=== PATIENT | female | born 1945 | race Caucasian/White ===

== ENCOUNTER 2023-01-07 17:06 | Inpatient (IN) | payer MEDICARE ==
[~2023-01-07] VITALS: Ht 165.1 cm; Wt 47.6 kg
[2023-01-07] MEDS ORDERED: ONDANSETRON 4 MG/2 ML VIAL ONE (17:22)
[2023-01-07] MEDS ORDERED: HYDROMORPHONE 1 MG/1 ML DISP.SYRIN ONE ×2 (17:23→18:40)
[2023-01-07] MEDS ORDERED: HYDROMORPHONE 1 MG/1 ML DISP.SYRIN IV ONE ×2 (17:30→18:45)
[2023-01-07] MEDS ORDERED: ONDANSETRON 4 MG/2 ML VIAL IV ONE (17:30)
[2023-01-07] MEDS ORDERED: OXYC-128 PO (17:32)
[2023-01-07] MEDS ORDERED: OLME20TA13 PO (17:32)
[2023-01-07] MEDS ORDERED: PRAV20TA4 PO (17:32)
[2023-01-07 17:37] LABS: BASOPHILS # (AUTO) 0.1 K/UL (0.0-0.2); BASOPHILS % (AUTO) 1.2 % (0.0-2.0); EOSINOPHILS % (AUTO) 0.1 % (0.0-7.0); HEMATOCRIT 45.4 % (31.2-41.9); HEMOGLOBIN 15.3 g/dL (10.9-14.3); LYMPHOCYTES # (AUTO) 0.3 K/uL (0.8-4.8); LYMPHOCYTES % (AUTO) 2.9 % (20.5-51.5); MEAN CORPUSCULAR HEMOGLOBIN 33.4 uug (24.7-32.8); MEAN CORPUSCULAR HGB CONC 34 g/dL (32.3-35.6); MEAN CORPUSCULAR VOLUME 98.9 fL (75.5-95.3); MONOCYTES # (AUTO) 1.1 K/uL (0.1-1.30); MONOCYTES % (AUTO) 10.3 % (0.0-11.0); NEUTROPHILS # (AUTO) 9.6 K/uL (1.8-8.9); NEUTROPHILS % (AUTO) 85.5 % (38.5-71.5); PLATELET COUNT (AUTO) 159 K/uL (179-408); RED CELL DISTRIBUTION WIDTH 13.1 % (12.3-17.7); WHITE BLOOD COUNT (AUTO) 11.2 K/uL (3.8-11.8)
[2023-01-07 17:42] LABS: DIFFERENTIAL COMMENT 1
[2023-01-07 17:55] LABS: ALANINE AMINOTRANSFERASE 25 U/L (14-59); ALKALINE PHOSPHATASE 71 U/L (50-136); ASPARTATE AMINOTRANSFERASE 26 U/L (15-37); BILIRUBIN,DIRECT 0.5 mg/dL (0.0-0.2); BILIRUBIN,TOTAL 1.8 mg/dL (0.2-1.0); CALCIUM 8.9 mg/dL (8.5-10.1); CARBON DIOXIDE 25 mmol/L (21-32); CHLORIDE 94 mmol/L (98-107); CREATININE 0.7 mg/dL (0.6-1.3); GLUCOSE 148 mg/dL (74-106); POTASSIUM 4.3 mmol/L (3.5-5.1); SODIUM SERUM 132 mmol/L (136-145); TOTAL PROTEIN, SERUM 7.4 g/dL (6.4-8.2); UREA NITROGEN, BLOOD 17 mg/dL (7-18)
[2023-01-07] MEDS ORDERED: ONDANSETRON 4 MG/2 ML VIAL IV PRN ×2 (22:30→23:00)
[2023-01-07] MEDS: MORPHINE SULFATE 4 MG/1 ML DISP.SYRIN IV PRN (22:48)
[2023-01-07] MEDS ORDERED: ZOLPIDEM 5 MG TABLET PO PRN (23:00)
[2023-01-07] MEDS ORDERED: ACETAMINOPHEN 325 MG TABLET PO PRN (23:00)
[2023-01-07] MEDS ORDERED: MAGNESIUM HYDROXIDE 30 ML LIQUID UDC PO PRN (23:00)
[2023-01-07] MEDS ORDERED: REMEDY ESSENTIAL ZINC PASTE 113 GM TP PRN (23:00)
[2023-01-08] VITALS (7 sets, daily range): BP systolic 130–156; BP diastolic 60–93; TEMP 97.9–98.7; O2SAT 96–99
[2023-01-08] MEDS: MORPHINE SULFATE 4 MG/1 ML DISP.SYRIN IV PRN ×4 (07:02→21:14)
[2023-01-08 07:13] LABS: BASOPHILS % (AUTO) 0.1 % (0.0-2.0); EOSINOPHILS % (AUTO) 0.1 % (0.0-7.0); HEMATOCRIT 43.2 % (31.2-41.9); HEMOGLOBIN 15.1 g/dL (10.9-14.3); LYMPHOCYTES # (AUTO) 0.5 K/uL (0.8-4.8); LYMPHOCYTES % (AUTO) 5.2 % (20.5-51.5); MEAN CORPUSCULAR HEMOGLOBIN 34.5 uug (24.7-32.8); MEAN CORPUSCULAR HGB CONC 35 g/dL (32.3-35.6); MEAN CORPUSCULAR VOLUME 98.5 fL (75.5-95.3); MONOCYTES # (AUTO) 0.9 K/uL (0.1-1.30); MONOCYTES % (AUTO) 9.3 % (0.0-11.0); NEUTROPHILS # (AUTO) 8.2 K/uL (1.8-8.9); NEUTROPHILS % (AUTO) 85.3 % (38.5-71.5); PLATELET COUNT (AUTO) 139 K/uL (179-408); RED BLOOD CELL COUNT(AUTO) 4.38 MIL/uL (3.63-4.92); RED CELL DISTRIBUTION WIDTH 13.1 % (12.3-17.7); WHITE BLOOD COUNT (AUTO) 9.7 K/uL (3.8-11.8)
[2023-01-08 07:30] LABS: DIFFERENTIAL COMMENT 1
[2023-01-08 07:52] LABS: CALCIUM 8.9 mg/dL (8.5-10.1); CARBON DIOXIDE 30 mmol/L (21-32); CHLORIDE 94 mmol/L (98-107); CHOLESTEROL 170 mg/dL (<200); CREATININE 0.7 mg/dL (0.6-1.3); GLUCOSE 104 mg/dL (74-106); HDL CHOLESTEROL 86 mg/dL (40-60); MAGNESIUM 1.8 mg/dL (1.8-2.4); PHOSPHOROUS 3.3 mg/dL (2.5-4.9); POTASSIUM 4.3 mmol/L (3.5-5.1); SODIUM SERUM 133 mmol/L (136-145); TRIGLYCERIDES 48 MG/DL (30-150); UREA NITROGEN, BLOOD 17 mg/dL (7-18)
[2023-01-08] MEDS ORDERED: VANCOMYCIN 1000 MG VIAL ONE (09:00)
[2023-01-08] MEDS: LOSARTAN POTASSIUM 50 MG TABLET PO SCH ×2 (09:00→15:17)
[2023-01-08] MEDS ORDERED: LOSARTAN POTASSIUM 50 MG TABLET PO SCH (09:00)
[2023-01-08] MEDS: PANTOPRAZOLE SODIUM 40 MG VIAL IV SCH (09:08)
[2023-01-08 09:43] LABS: THYROID STIMULATING HORMONE 2.326 mIU/mL (0.358-3.740)
[2023-01-08] MEDS ORDERED: KETOROLAC TROMETHAMINE 30 MG INJ ONE (10:00)
[2023-01-08] MEDS ORDERED: LIDOCAINE-MPF 2% 5 ML VIAL ONE (10:00)
[2023-01-08] MEDS ORDERED: PHENYLEPHRINE 10 MG/1 ML VIAL ONE (10:00)
[2023-01-08] MEDS ORDERED: PROPOFOL 200 MG/20 ML BOTTLE ONE (10:00)
[2023-01-08] MEDS ORDERED: FENTANYL CITRATE 250 MCG/5 ML AMPUL ONE (10:47)
[2023-01-08] MEDS ORDERED: FENTANYL CITRATE 100 MCG/2 ML AMPUL ONE (11:48)
[2023-01-08] MEDS: IV D5W-0.45% NS +20 KCL 1,000 ML IV PRN (14:08)
[2023-01-08] MEDS: CEFAZOLIN 1 G in IV DEXTROSE 5% 50 ML IV SCH (18:02)
[2023-01-08] MEDS: ATORVASTATIN 10 MG TABLET PO SCH (21:13)
[2023-01-09] MEDS: CEFAZOLIN 1 G in IV DEXTROSE 5% 50 ML IV SCH (01:27)
[2023-01-09] MEDS: MORPHINE SULFATE 4 MG/1 ML DISP.SYRIN IV PRN ×7 (01:30→21:15)
[2023-01-09 04:00] VITALS: BP 117/65; TEMP 97.4; O2SAT 96
[2023-01-09] MEDS: IV D5W-0.45% NS +20 KCL 1,000 ML IV PRN ×2 (06:00→22:16)
[2023-01-09 07:36] LABS: BASOPHILS % (AUTO) 0.2 % (0.0-2.0); DIFFERENTIAL COMMENT 1; EOSINOPHILS % (AUTO) 0.3 % (0.0-7.0); HEMATOCRIT 35.9 % (31.2-41.9); HEMOGLOBIN 12.3 g/dL (10.9-14.3); LYMPHOCYTES # (AUTO) 0.7 K/uL (0.8-4.8); LYMPHOCYTES % (AUTO) 8.3 % (20.5-51.5); MEAN CORPUSCULAR HEMOGLOBIN 34.5 uug (24.7-32.8); MEAN CORPUSCULAR HGB CONC 34 g/dL (32.3-35.6); MEAN CORPUSCULAR VOLUME 100.4 fL (75.5-95.3); MONOCYTES # (AUTO) 0.8 K/uL (0.1-1.30); MONOCYTES % (AUTO) 9.1 % (0.0-11.0); NEUTROPHILS # (AUTO) 7.3 K/uL (1.8-8.9); NEUTROPHILS % (AUTO) 82.1 % (38.5-71.5); PLATELET COUNT (AUTO) 133 K/uL (179-408); RED BLOOD CELL COUNT(AUTO) 3.57 MIL/uL (3.63-4.92); WHITE BLOOD COUNT (AUTO) 8.9 K/uL (3.8-11.8)
[2023-01-09 07:51] LABS: CALCIUM 8.7 mg/dL (8.5-10.1); CARBON DIOXIDE 29 mmol/L (21-32); CHLORIDE 96 mmol/L (98-107); CREATININE 0.6 mg/dL (0.6-1.3); GLUCOSE 121 mg/dL (74-106); MAGNESIUM 1.7 mg/dL (1.8-2.4); PHOSPHOROUS 2.4 mg/dL (2.5-4.9); POTASSIUM 3.8 mmol/L (3.5-5.1); SODIUM SERUM 130 mmol/L (136-145); UREA NITROGEN, BLOOD 14 mg/dL (7-18)
[2023-01-09 08:00] VITALS: BP 119/74; TEMP 98.3; O2SAT 97
[2023-01-09] MEDS: LOSARTAN POTASSIUM 50 MG TABLET PO SCH (09:45)
[2023-01-09] MEDS: PANTOPRAZOLE SODIUM 40 MG VIAL IV SCH (09:45)
[2023-01-09] MEDS: MAGNESIUM SULFATE/D5W 100 ML IV SCH ×2 (09:46→12:06)
[2023-01-09 11:30] VITALS: BP 109/54; TEMP 97.3; O2SAT 95
[2023-01-09 15:53] VITALS: BP 101/55; TEMP 98.2; O2SAT 98
[2023-01-09] MEDS ORDERED: NEUTRA PHOS PACKET PO ONE (16:00)
[2023-01-09] MEDS: GLUCERNA SHAKE 237 ML CAN PO SCH (17:01)
[2023-01-09 19:43] VITALS: BP 114/60; TEMP 98; O2SAT 99
[2023-01-09] MEDS: ATORVASTATIN 10 MG TABLET PO SCH (21:14)
[2023-01-10 04:00] VITALS: BP 139/73; TEMP 98.1; O2SAT 96
[2023-01-10] MEDS: HYDROCODONE/APAP 10-325 MG TABLET PO PRN (06:01)
[2023-01-10] MEDS: PANTOPRAZOLE SODIUM 40 MG TABLET.DR PO SCH (06:04)
[2023-01-10 07:15] LABS: BASOPHILS % (AUTO) 0.4 % (0.0-2.0); EOSINOPHILS # (AUTO) 0.1 K/uL (0.0-0.7); EOSINOPHILS % (AUTO) 1.1 % (0.0-7.0); HEMOGLOBIN 11.5 g/dL (10.9-14.3); LYMPHOCYTES # (AUTO) 0.7 K/uL (0.8-4.8); LYMPHOCYTES % (AUTO) 9.4 % (20.5-51.5); MEAN CORPUSCULAR HEMOGLOBIN 34.6 uug (24.7-32.8); MEAN CORPUSCULAR HGB CONC 35 g/dL (32.3-35.6); MEAN CORPUSCULAR VOLUME 99.4 fL (75.5-95.3); MONOCYTES # (AUTO) 0.7 K/uL (0.1-1.30); MONOCYTES % (AUTO) 8.7 % (0.0-11.0); NEUTROPHILS # (AUTO) 6.1 K/uL (1.8-8.9); NEUTROPHILS % (AUTO) 80.4 % (38.5-71.5); PLATELET COUNT (AUTO) 122 K/uL (179-408); RED BLOOD CELL COUNT(AUTO) 3.32 MIL/uL (3.63-4.92); RED CELL DISTRIBUTION WIDTH 12.8 % (12.3-17.7); WHITE BLOOD COUNT (AUTO) 7.6 K/uL (3.8-11.8)
[2023-01-10 07:21] LABS: DIFFERENTIAL COMMENT 1
[2023-01-10 07:48] LABS: CALCIUM 7.8 mg/dL (8.5-10.1); CARBON DIOXIDE 27 mmol/L (21-32); CHLORIDE 97 mmol/L (98-107); CREATININE 0.5 mg/dL (0.6-1.3); GLUCOSE 98 mg/dL (74-106); MAGNESIUM 1.8 mg/dL (1.8-2.4); PHOSPHOROUS 2.6 mg/dL (2.5-4.9); POTASSIUM 4.5 mmol/L (3.5-5.1); SODIUM SERUM 130 mmol/L (136-145); UREA NITROGEN, BLOOD 7 mg/dL (7-18)
[2023-01-10] MEDS: LOSARTAN POTASSIUM 50 MG TABLET PO SCH (09:00)
[2023-01-10] MEDS: GLUCERNA SHAKE 237 ML CAN PO SCH ×2 (09:09→17:00)
[2023-01-10] MEDS: MORPHINE SULFATE 4 MG/1 ML DISP.SYRIN IV PRN ×3 (12:22→21:39)
[2023-01-10 12:54] VITALS: BP 110/65; TEMP 98; O2SAT 96
[2023-01-10 15:50] VITALS: BP 145/76; TEMP 97.9; O2SAT 99
[2023-01-10 20:00] VITALS: BP 137/62; TEMP 97.5; O2SAT 99
[2023-01-10] MEDS: ATORVASTATIN 10 MG TABLET PO SCH (21:09)
[2023-01-11] MEDS: PANTOPRAZOLE SODIUM 40 MG TABLET.DR PO SCH (06:26)
[2023-01-11] MEDS: MORPHINE SULFATE 4 MG/1 ML DISP.SYRIN IV PRN (06:39)
[2023-01-11 07:07] LABS: BASOPHILS % (AUTO) 0.2 % (0.0-2.0); EOSINOPHILS # (AUTO) 0.1 K/uL (0.0-0.7); EOSINOPHILS % (AUTO) 2.1 % (0.0-7.0); HEMATOCRIT 32.5 % (31.2-41.9); HEMOGLOBIN 11.4 g/dL (10.9-14.3); LYMPHOCYTES # (AUTO) 0.8 K/uL (0.8-4.8); LYMPHOCYTES % (AUTO) 11.4 % (20.5-51.5); MEAN CORPUSCULAR HEMOGLOBIN 34.6 uug (24.7-32.8); MEAN CORPUSCULAR HGB CONC 35 g/dL (32.3-35.6); MONOCYTES # (AUTO) 0.7 K/uL (0.1-1.30); MONOCYTES % (AUTO) 9.8 % (0.0-11.0); NEUTROPHILS # (AUTO) 5.1 K/uL (1.8-8.9); NEUTROPHILS % (AUTO) 76.5 % (38.5-71.5); PLATELET COUNT (AUTO) 155 K/uL (179-408); RED BLOOD CELL COUNT(AUTO) 3.28 MIL/uL (3.63-4.92); RED CELL DISTRIBUTION WIDTH 12.9 % (12.3-17.7); WHITE BLOOD COUNT (AUTO) 6.6 K/uL (3.8-11.8)
[2023-01-11 07:22] LABS: DIFFERENTIAL COMMENT 1
[2023-01-11 07:34] LABS: CALCIUM 8.9 mg/dL (8.5-10.1); CARBON DIOXIDE 25 mmol/L (21-32); CHLORIDE 95 mmol/L (98-107); CREATININE 0.4 mg/dL (0.6-1.3); GLUCOSE 99 mg/dL (74-106); MAGNESIUM 1.4 mg/dL (1.8-2.4); PHOSPHOROUS 3.5 mg/dL (2.5-4.9); SODIUM SERUM 127 mmol/L (136-145); UREA NITROGEN, BLOOD 5 mg/dL (7-18)
[2023-01-11] MEDS: GLUCERNA SHAKE 237 ML CAN PO SCH (09:00)
[2023-01-11] MEDS: LOSARTAN POTASSIUM 50 MG TABLET PO SCH (09:00)
[2023-01-11 10:03] VITALS: BP 137/75; TEMP 98; O2SAT 99
[2023-01-11] MEDS: HYDROCODONE/APAP 10-325 MG TABLET PO PRN (10:05)
[2023-01-11] MEDS ORDERED: ENOXAPARIN SODIUM 30 MG/0.3 ML DISP.SYRIN SUBCUT SCH (10:30)
[2023-01-11] MEDS ORDERED: MAGNESIUM OXIDE 400 MG TABLET PO ONE (10:30)
[2023-01-11] MEDS ORDERED: ENOXAPARIN SODIUM 40 MG/0.4 ML DISP.SYRIN SQ SCH (10:45)
[2023-01-11] MEDS: MAGNESIUM SULFATE/D5W 100 ML IV SCH ×2 (11:24→12:29)
[2023-01-11 12:05] VITALS: BP 103/63; TEMP 97.9; O2SAT 96
[2023-01-11] MEDS ORDERED: Z GUARD TOP (17:13)
[2023-01-11] MEDS ORDERED: NUT.237L36 PO (17:13)
[2023-01-11] MEDS ORDERED: ZOLP5TAB2 PO (17:13)
[2023-01-11] MEDS ORDERED: MORP4CAR IV (17:13)
[2023-01-11] MEDS ORDERED: LOSA50TA3 PO (17:13)
[2023-01-11] MEDS ORDERED: MAGN400O6 PO (17:13)
[2023-01-11] MEDS ORDERED: ACET325C7 PO (17:13)
[2023-01-11] MEDS ORDERED: ATOR10TA PO (17:13)
[2023-01-11] MEDS ORDERED: ONDA4TAB5 IV (17:13)
[2023-01-11] MEDS ORDERED: ENOX40DI SQ (17:13)
[2023-01-11] MEDS ORDERED: PANT40TA2 PO (17:13)
[2023-01-11] MEDS ORDERED: HYDR-3980 PO (17:13)
[2023-01-12 20:30] LABS: *SODIUM RNDM,URINE 42 mmol/L (40-220)
== END 2023-01-11 15:52 | DRG 481 ==
LOC: ER 17:08 → MEDSURG3 20:16
PROVIDERS: ADMIT Nurse Practitioner Acute Care; ATTEND Nurse Practitioner Acute Care
PROC: 0QS736Z Reposition Left Upper Femur with Intramedullary Internal Fixation Device, Percutaneous Approach (ICD-10-PCS; principal; 2023-01-08)
DX: M80.852A Other osteoporosis with current pathological fracture, left femur, initial encounter for fracture (principal); E22.2 Syndrome of inappropriate secretion of antidiuretic hormone; R64 Cachexia; Z68.1 Body mass index [BMI] 19.9 or less, adult; Z98.1 Arthrodesis status; S00.83XA Contusion of other part of head, initial encounter; G89.4 Chronic pain syndrome; E78.5 Hyperlipidemia, unspecified; I10 Essential (primary) hypertension; Z79.899 Other long term (current) drug therapy
CPT/HCPCS: 36415; 70450; 71045; 72125; 73502; 73503; 83735; 84100; 84300; 84443; 84484; 85025; 85730; 86850; 86900; 86901; 93005; 93307; A4649; A6209; C1713; C9113; G0378; J0690; J1170; J1650; J1885; J2270; J2370; J2405; J3010; J3370; J3475; J3490

== ENCOUNTER 2023-01-11 16:04 | Inpatient (IN) | payer MEDICARE ==
[~2023-01-11] VITALS: Ht 165.1 cm; Wt 47.6 kg
[2023-01-11 16:00] VITALS: BP 99/57; TEMP 97.9; O2SAT 100
[~2023-01-11 16:04] MED LIST: OLME20TA13 PO; OXYC-128 PO; PRAV20TA4 PO
[2023-01-11] MEDS ORDERED: Z GUARD TOP (17:13)
[2023-01-11] MEDS ORDERED: ONDA4TAB5 IV (17:13)
[2023-01-11] MEDS ORDERED: ATOR10TA PO (17:13)
[2023-01-11] MEDS ORDERED: MAGN400O6 PO (17:13)
[2023-01-11] MEDS ORDERED: LOSA50TA3 PO (17:13)
[2023-01-11] MEDS ORDERED: ACET325C7 PO (17:13)
[2023-01-11] MEDS ORDERED: ENOX40DI SQ (17:13)
[2023-01-11] MEDS ORDERED: HYDR-3980 PO (17:13)
[2023-01-11] MEDS ORDERED: NUT.237L36 PO (17:13)
[2023-01-11] MEDS ORDERED: PANT40TA2 PO (17:13)
[2023-01-11] MEDS ORDERED: MORP4CAR IV (17:13)
[2023-01-11] MEDS ORDERED: ZOLP5TAB2 PO (17:13)
[2023-01-11 19:45] VITALS: BP 124/65; TEMP 98.2; O2SAT 100
[2023-01-11] MEDS: OXYCODONE HCL 5 MG TABLET PO PRN (20:27)
[2023-01-12] MEDS: OXYCODONE HCL 5 MG TABLET PO PRN ×3 (05:52→18:17)
[2023-01-12 06:08] VITALS: BP 166/89; TEMP 98.5; O2SAT 100
[2023-01-12] MEDS ORDERED: CLONIDINE HCL 0.1 MG TABLET PO PRN (06:15)
[2023-01-12 08:00] VITALS: BP 90/51; TEMP 97.8; O2SAT 99
[2023-01-12] MEDS ORDERED: ONDANSETRON HCL 4 MG TABLET PO PRN (10:45)
[2023-01-12] MEDS: LOSARTAN POTASSIUM 50 MG TABLET PO SCH (11:23)
[2023-01-12] MEDS: ENOXAPARIN SODIUM 40 MG/0.4 ML DISP.SYRIN SQ SCH (11:23)
[2023-01-12] MEDS: GLUCERNA SHAKE 237 ML CAN PO SCH ×2 (11:24→18:02)
[2023-01-12 16:00] VITALS: BP 111/58; TEMP 97.8; O2SAT 99
[2023-01-12] MEDS: ATORVASTATIN 10 MG TABLET PO SCH (20:18)
[2023-01-12 20:21] VITALS: BP 106/50; TEMP 98.5; O2SAT 96
[2023-01-13] MEDS: OXYCODONE HCL 5 MG TABLET PO PRN ×3 (00:30→21:43)
[2023-01-13 04:04] VITALS: BP 105/59; TEMP 98; O2SAT 97
[2023-01-13] MEDS: PANTOPRAZOLE SODIUM 40 MG TABLET.DR PO SCH (06:12)
[2023-01-13 07:24] LABS: CALCIUM 8.6 mg/dL (8.5-10.1); CARBON DIOXIDE 28 mmol/L (21-32); CHLORIDE 97 mmol/L (98-107); CREATININE 0.4 mg/dL (0.6-1.3); GLUCOSE 99 mg/dL (74-106); MAGNESIUM 1.5 mg/dL (1.8-2.4); POTASSIUM 4.1 mmol/L (3.5-5.1); SODIUM SERUM 132 mmol/L (136-145); UREA NITROGEN, BLOOD 8 mg/dL (7-18); URIC ACID 1.9 mg/dL (2.6-6.0)
[2023-01-13 08:00] VITALS: BP 124/67; TEMP 97.9; O2SAT 97
[2023-01-13] MEDS: GLUCERNA SHAKE 237 ML CAN PO SCH ×2 (08:00→18:02)
[2023-01-13] MEDS ORDERED: MAGNESIUM OXIDE 400 MG TABLET PO ONE (09:15)
[2023-01-13] MEDS: LOSARTAN POTASSIUM 50 MG TABLET PO SCH (09:46)
[2023-01-13] MEDS: ENOXAPARIN SODIUM 40 MG/0.4 ML DISP.SYRIN SQ SCH (09:58)
[2023-01-13] MEDS ORDERED: MIRALAX 17 GM POWD.PACK PO SCH (10:30)
[2023-01-13] MEDS: SENNOSIDES/DOCUSATE SODIUM TABLET PO SCH (11:15)
[2023-01-13] MEDS: PSYLLIUM SEED PACKET PO SCH (12:19)
[2023-01-13 15:07] LABS: THYROID STIMULATING HORMONE 4.279 mIU/mL (0.358-3.740)
[2023-01-13 15:51] VITALS: BP 100/53; TEMP 98; O2SAT 97
[2023-01-13 20:00] VITALS: BP 158/76; TEMP 98.3; O2SAT 97
[2023-01-13] MEDS: ATORVASTATIN 10 MG TABLET PO SCH (21:01)
[2023-01-14 05:05] VITALS: BP 140/80; TEMP 98.4; O2SAT 96
[2023-01-14] MEDS: PANTOPRAZOLE SODIUM 40 MG TABLET.DR PO SCH (06:38)
[2023-01-14 07:42] VITALS: BP 156/78; TEMP 97.6; O2SAT 96
[2023-01-14] MEDS: LOSARTAN POTASSIUM 50 MG TABLET PO SCH (08:57)
[2023-01-14] MEDS: ENOXAPARIN SODIUM 40 MG/0.4 ML DISP.SYRIN SQ SCH (08:57)
[2023-01-14] MEDS: SENNOSIDES/DOCUSATE SODIUM TABLET PO SCH (08:57)
[2023-01-14] MEDS: GLUCERNA SHAKE 237 ML CAN PO SCH ×2 (08:58→17:42)
[2023-01-14] MEDS: OXYCODONE HCL 5 MG TABLET PO PRN ×3 (08:58→22:57)
[2023-01-14] MEDS: PSYLLIUM SEED PACKET PO SCH (10:02)
[2023-01-14 15:14] VITALS: BP 128/63; TEMP 98.2; O2SAT 97
[2023-01-14 20:15] VITALS: BP 127/66; TEMP 98.2; O2SAT 98
[2023-01-14] MEDS: ATORVASTATIN 10 MG TABLET PO SCH (21:02)
[2023-01-15 05:24] VITALS: BP 139/65; TEMP 98.3; O2SAT 95
[2023-01-15] MEDS: PANTOPRAZOLE SODIUM 40 MG TABLET.DR PO SCH (06:07)
[2023-01-15 07:41] VITALS: BP 125/51; TEMP 98.1; O2SAT 99
[2023-01-15] MEDS: SENNOSIDES/DOCUSATE SODIUM TABLET PO SCH (08:59)
[2023-01-15] MEDS: OXYCODONE HCL 5 MG TABLET PO PRN ×2 (08:59→15:20)
[2023-01-15] MEDS: LOSARTAN POTASSIUM 50 MG TABLET PO SCH (09:00)
[2023-01-15] MEDS: ENOXAPARIN SODIUM 40 MG/0.4 ML DISP.SYRIN SQ SCH (09:03)
[2023-01-15] MEDS: PSYLLIUM SEED PACKET PO SCH (09:05)
[2023-01-15] MEDS: GLUCERNA SHAKE 237 ML CAN PO SCH ×2 (09:06→17:21)
[2023-01-15] MEDS ORDERED: BISACODYL 10 MG SUPP.RECT RC ONE (09:15)
[2023-01-15 16:00] VITALS: BP 132/67; TEMP 98.5; O2SAT 96
[2023-01-15 19:41] VITALS: BP 122/59; TEMP 97.9; O2SAT 96
[2023-01-15] MEDS: ATORVASTATIN 10 MG TABLET PO SCH (20:27)
[2023-01-15] MEDS: MORPHINE SULFATE SR 15 MG TABLET.SA PO SCH (20:27)
[2023-01-16 03:52] VITALS: BP 142/80; TEMP 98.3; O2SAT 98
[2023-01-16] MEDS: PANTOPRAZOLE SODIUM 40 MG TABLET.DR PO SCH (06:19)
[2023-01-16] MEDS: GLUCERNA SHAKE 237 ML CAN PO SCH ×2 (08:01→18:12)
[2023-01-16] MEDS: LOSARTAN POTASSIUM 50 MG TABLET PO SCH (08:56)
[2023-01-16] MEDS: SENNOSIDES/DOCUSATE SODIUM TABLET PO SCH (08:56)
[2023-01-16] MEDS: PSYLLIUM SEED PACKET PO SCH (08:56)
[2023-01-16] MEDS: ENOXAPARIN SODIUM 40 MG/0.4 ML DISP.SYRIN SQ SCH (08:58)
[2023-01-16 09:09] VITALS: BP 149/77; TEMP 97.6; O2SAT 95
[2023-01-16] MEDS: MORPHINE SULFATE SR 15 MG TABLET.SA PO SCH ×2 (09:18→21:08)
[2023-01-16] MEDS: OXYCODONE HCL 5 MG TABLET PO PRN (13:04)
[2023-01-16 16:18] VITALS: BP 83/45; TEMP 97.4; O2SAT 96
[2023-01-16 20:00] VITALS: BP 112/57; TEMP 97.9; O2SAT 100
[2023-01-16] MEDS: ATORVASTATIN 10 MG TABLET PO SCH (21:08)
[2023-01-17 04:00] VITALS: BP 121/51; TEMP 98; O2SAT 99
[2023-01-17] MEDS: PANTOPRAZOLE SODIUM 40 MG TABLET.DR PO SCH (06:44)
[2023-01-17 07:24] LABS: CALCIUM 9.1 mg/dL (8.5-10.1); CARBON DIOXIDE 27 mmol/L (21-32); CHLORIDE 96 mmol/L (98-107); CREATININE 0.5 mg/dL (0.6-1.3); GLUCOSE 107 mg/dL (74-106); MAGNESIUM 1.6 mg/dL (1.8-2.4); SODIUM SERUM 130 mmol/L (136-145); UREA NITROGEN, BLOOD 11 mg/dL (7-18); URIC ACID 2.4 mg/dL (2.6-6.0)
[2023-01-17 08:00] VITALS: BP 93/55; TEMP 98.5; O2SAT 100
[2023-01-17] MEDS: SENNOSIDES/DOCUSATE SODIUM TABLET PO SCH (08:27)
[2023-01-17] MEDS: PSYLLIUM SEED PACKET PO SCH (08:28)
[2023-01-17] MEDS: LOSARTAN POTASSIUM 50 MG TABLET PO SCH (08:28)
[2023-01-17] MEDS: GLUCERNA SHAKE 237 ML CAN PO SCH ×2 (08:28→18:06)
[2023-01-17] MEDS: ENOXAPARIN SODIUM 40 MG/0.4 ML DISP.SYRIN SQ SCH (08:35)
[2023-01-17] MEDS: MORPHINE SULFATE SR 15 MG TABLET.SA PO SCH ×2 (08:36→20:54)
[2023-01-17] MEDS ORDERED: MAGNESIUM OXIDE 400 MG TABLET PO ONE (09:30)
[2023-01-17] MEDS: OXYCODONE HCL 5 MG TABLET PO PRN (11:17)
[2023-01-17 16:00] VITALS: BP 111/58; TEMP 98.1; O2SAT 95
[2023-01-17 20:00] VITALS: BP 100/54; TEMP 97.5; O2SAT 96
[2023-01-17] MEDS: ATORVASTATIN 10 MG TABLET PO SCH (20:54)
[2023-01-18 04:00] VITALS: BP 120/60; TEMP 98; O2SAT 97
[2023-01-18] MEDS: PANTOPRAZOLE SODIUM 40 MG TABLET.DR PO SCH (06:16)
[2023-01-18 07:51] VITALS: BP 103/55; TEMP 98.4; O2SAT 98
[2023-01-18] MEDS: SENNOSIDES/DOCUSATE SODIUM TABLET PO SCH (09:15)
[2023-01-18] MEDS: LOSARTAN POTASSIUM 50 MG TABLET PO SCH (09:15)
[2023-01-18] MEDS: MORPHINE SULFATE SR 15 MG TABLET.SA PO SCH ×2 (09:17→20:58)
[2023-01-18] MEDS: ENOXAPARIN SODIUM 40 MG/0.4 ML DISP.SYRIN SQ SCH (09:18)
[2023-01-18] MEDS: PSYLLIUM SEED PACKET PO SCH (09:20)
[2023-01-18] MEDS: GLUCERNA SHAKE 237 ML CAN PO SCH ×2 (09:21→17:40)
[2023-01-18] MEDS: OXYCODONE HCL 5 MG TABLET PO PRN (14:39)
[2023-01-18 15:12] VITALS: BP 132/54; TEMP 98; O2SAT 96
[2023-01-18] MEDS: MIRALAX 17 GM POWD.PACK PO PRN (17:59)
[2023-01-18 20:00] VITALS: BP 118/54; TEMP 97.6; O2SAT 98
[2023-01-18] MEDS: ATORVASTATIN 10 MG TABLET PO SCH (20:59)
[2023-01-19 04:00] VITALS: BP 110/57; TEMP 98.1; O2SAT 95
[2023-01-19] MEDS: PANTOPRAZOLE SODIUM 40 MG TABLET.DR PO SCH (06:07)
[2023-01-19 08:00] VITALS: BP 103/56; TEMP 97.7; O2SAT 97
[2023-01-19] MEDS: SENNOSIDES/DOCUSATE SODIUM TABLET PO SCH (08:35)
[2023-01-19] MEDS: LOSARTAN POTASSIUM 50 MG TABLET PO SCH (08:35)
[2023-01-19] MEDS: MORPHINE SULFATE SR 15 MG TABLET.SA PO SCH ×2 (08:36→20:38)
[2023-01-19] MEDS: ENOXAPARIN SODIUM 40 MG/0.4 ML DISP.SYRIN SQ SCH (08:38)
[2023-01-19] MEDS: GLUCERNA SHAKE 237 ML CAN PO SCH ×2 (08:45→17:29)
[2023-01-19] MEDS: PSYLLIUM SEED PACKET PO SCH (08:47)
[2023-01-19 16:00] VITALS: BP 105/55; TEMP 97.8; O2SAT 98
[2023-01-19] MEDS: MIRALAX 17 GM POWD.PACK PO PRN (16:29)
[2023-01-19] MEDS: OXYCODONE HCL 5 MG TABLET PO PRN (16:30)
[2023-01-19 20:08] VITALS: BP 101/51; TEMP 98.6; O2SAT 92
[2023-01-19] MEDS: ATORVASTATIN 10 MG TABLET PO SCH (20:38)
[2023-01-20 04:00] VITALS: BP 100/53; TEMP 97.7; O2SAT 96
[2023-01-20] MEDS: PANTOPRAZOLE SODIUM 40 MG TABLET.DR PO SCH (06:24)
[2023-01-20 06:58] LABS: CALCIUM 8.9 mg/dL (8.5-10.1); CARBON DIOXIDE 27 mmol/L (21-32); CHLORIDE 96 mmol/L (98-107); CREATININE 0.5 mg/dL (0.6-1.3); GLUCOSE 99 mg/dL (74-106); POTASSIUM 4.2 mmol/L (3.5-5.1); SODIUM SERUM 132 mmol/L (136-145); UREA NITROGEN, BLOOD 15 mg/dL (7-18); URIC ACID 2.9 mg/dL (2.6-6.0)
[2023-01-20 08:19] LABS: *SODIUM RNDM,URINE 36 mmol/L (40-220)
[2023-01-20] MEDS: MORPHINE SULFATE SR 15 MG TABLET.SA PO SCH ×2 (09:05→20:40)
[2023-01-20] MEDS: SENNOSIDES/DOCUSATE SODIUM TABLET PO SCH (09:05)
[2023-01-20] MEDS: PSYLLIUM SEED PACKET PO SCH (09:07)
[2023-01-20] MEDS: ENOXAPARIN SODIUM 40 MG/0.4 ML DISP.SYRIN SQ SCH (09:08)
[2023-01-20] MEDS: GLUCERNA SHAKE 237 ML CAN PO SCH ×2 (09:08→18:00)
[2023-01-20] MEDS: LOSARTAN POTASSIUM 50 MG TABLET PO SCH (09:09)
[2023-01-20 09:20] VITALS: BP 116/56; TEMP 97.2; O2SAT 97
[2023-01-20] MEDS: OXYCODONE HCL 5 MG TABLET PO PRN (15:32)
[2023-01-20 16:11] VITALS: BP 94/49; TEMP 97; O2SAT 97
[2023-01-20 19:59] VITALS: BP 102/60; TEMP 98; O2SAT 96
[2023-01-20] MEDS: ATORVASTATIN 10 MG TABLET PO SCH (20:40)
[2023-01-21 05:11] VITALS: BP 117/69; TEMP 97.9; O2SAT 96
[2023-01-21] MEDS: PANTOPRAZOLE SODIUM 40 MG TABLET.DR PO SCH (06:22)
[2023-01-21 08:39] VITALS: BP 114/54; TEMP 98.2; O2SAT 92
[2023-01-21] MEDS: MORPHINE SULFATE SR 15 MG TABLET.SA PO SCH ×2 (08:40→21:45)
[2023-01-21] MEDS: LOSARTAN POTASSIUM 50 MG TABLET PO SCH (08:40)
[2023-01-21] MEDS: SENNOSIDES/DOCUSATE SODIUM TABLET PO SCH (08:40)
[2023-01-21] MEDS: ENOXAPARIN SODIUM 40 MG/0.4 ML DISP.SYRIN SQ SCH (08:42)
[2023-01-21] MEDS: PSYLLIUM SEED PACKET PO SCH (08:43)
[2023-01-21] MEDS: GLUCERNA SHAKE 237 ML CAN PO SCH ×2 (08:52→18:04)
[2023-01-21] MEDS: OXYCODONE HCL 5 MG TABLET PO PRN ×2 (13:48→21:44)
[2023-01-21 15:17] VITALS: BP 109/51; TEMP 97.8; O2SAT 97
[2023-01-21 20:50] VITALS: BP 129/57; TEMP 97.5
[2023-01-21] MEDS: ATORVASTATIN 10 MG TABLET PO SCH (21:45)
[2023-01-22 05:12] VITALS: BP 140/69; TEMP 97.9
[2023-01-22] MEDS: PANTOPRAZOLE SODIUM 40 MG TABLET.DR PO SCH (06:10)
[2023-01-22 08:02] VITALS: BP 123/73; TEMP 97.5; O2SAT 100
[2023-01-22] MEDS: GLUCERNA SHAKE 237 ML CAN PO SCH ×2 (08:16→18:08)
[2023-01-22] MEDS: PSYLLIUM SEED PACKET PO SCH (09:01)
[2023-01-22] MEDS: SENNOSIDES/DOCUSATE SODIUM TABLET PO SCH (09:01)
[2023-01-22] MEDS: LOSARTAN POTASSIUM 50 MG TABLET PO SCH (09:01)
[2023-01-22] MEDS: MORPHINE SULFATE SR 15 MG TABLET.SA PO SCH ×2 (09:01→20:24)
[2023-01-22] MEDS: ENOXAPARIN SODIUM 40 MG/0.4 ML DISP.SYRIN SQ SCH (09:03)
[2023-01-22] MEDS: OXYCODONE HCL 5 MG TABLET PO PRN ×2 (13:27→20:25)
[2023-01-22 15:43] VITALS: BP 95/55; TEMP 98.2; O2SAT 96
[2023-01-22 20:04] VITALS: BP 111/60; TEMP 98; O2SAT 95
[2023-01-22] MEDS: ATORVASTATIN 10 MG TABLET PO SCH (20:24)
[2023-01-23 05:33] VITALS: BP 150/80; TEMP 97.6; O2SAT 96
[2023-01-23] MEDS: PANTOPRAZOLE SODIUM 40 MG TABLET.DR PO SCH (06:28)
[2023-01-23 08:00] VITALS: BP 102/44; TEMP 97.6; O2SAT 99
[2023-01-23] MEDS: GLUCERNA SHAKE 237 ML CAN PO SCH ×2 (08:41→18:19)
[2023-01-23] MEDS: PSYLLIUM SEED PACKET PO SCH (08:42)
[2023-01-23] MEDS: LOSARTAN POTASSIUM 50 MG TABLET PO SCH (08:42)
[2023-01-23] MEDS: SENNOSIDES/DOCUSATE SODIUM TABLET PO SCH (08:42)
[2023-01-23] MEDS: MORPHINE SULFATE SR 15 MG TABLET.SA PO SCH ×2 (08:44→21:13)
[2023-01-23] MEDS: ENOXAPARIN SODIUM 40 MG/0.4 ML DISP.SYRIN SQ SCH (08:44)
[2023-01-23 14:45] VITALS: BP 94/53; O2SAT 97
[2023-01-23] MEDS: OXYCODONE HCL 5 MG TABLET PO PRN (15:26)
[2023-01-23 16:32] VITALS: BP 92/49; TEMP 97.3; O2SAT 99
[2023-01-23 20:00] VITALS: BP 102/48; TEMP 98.4; O2SAT 97
[2023-01-23] MEDS: ATORVASTATIN 10 MG TABLET PO SCH (21:13)
[2023-01-24 04:20] VITALS: BP 115/59; TEMP 97.5; O2SAT 96
[2023-01-24 06:10] LABS: BASOPHILS % (AUTO) 0.7 % (0.0-2.0); EOSINOPHILS # (AUTO) 0.1 K/uL (0.0-0.7); EOSINOPHILS % (AUTO) 2.2 % (0.0-7.0); HEMATOCRIT 29.7 % (31.2-41.9); HEMOGLOBIN 10.4 g/dL (10.9-14.3); LYMPHOCYTES # (AUTO) 0.8 K/uL (0.8-4.8); LYMPHOCYTES % (AUTO) 15.3 % (20.5-51.5); MEAN CORPUSCULAR HEMOGLOBIN 33.8 uug (24.7-32.8); MEAN CORPUSCULAR HGB CONC 35 g/dL (32.3-35.6); MEAN CORPUSCULAR VOLUME 96.7 fL (75.5-95.3); MONOCYTES # (AUTO) 0.6 K/uL (0.1-1.30); MONOCYTES % (AUTO) 10.6 % (0.0-11.0); NEUTROPHILS # (AUTO) 3.8 K/uL (1.8-8.9); NEUTROPHILS % (AUTO) 71.2 % (38.5-71.5); PLATELET COUNT (AUTO) 404 K/uL (179-408); RED BLOOD CELL COUNT(AUTO) 3.08 MIL/uL (3.63-4.92); RED CELL DISTRIBUTION WIDTH 12.6 % (12.3-17.7); WHITE BLOOD COUNT (AUTO) 5.4 K/uL (3.8-11.8)
[2023-01-24 06:21] LABS: DIFFERENTIAL COMMENT 1
[2023-01-24 06:28] LABS: ALANINE AMINOTRANSFERASE 21 U/L (14-59); ALKALINE PHOSPHATASE 124 U/L (50-136); ASPARTATE AMINOTRANSFERASE 14 U/L (15-37); BILIRUBIN,TOTAL 0.6 mg/dL (0.2-1.0); CALCIUM 9.7 mg/dL (8.5-10.1); CARBON DIOXIDE 26 mmol/L (21-32); CHLORIDE 98 mmol/L (98-107); CREATININE 0.5 mg/dL (0.6-1.3); GLUCOSE 105 mg/dL (74-106); MAGNESIUM 1.7 mg/dL (1.8-2.4); PHOSPHOROUS 4.5 mg/dL (2.5-4.9); POTASSIUM 4.4 mmol/L (3.5-5.1); SODIUM SERUM 134 mmol/L (136-145); TOTAL PROTEIN, SERUM 6.8 g/dL (6.4-8.2); UREA NITROGEN, BLOOD 12 mg/dL (7-18)
[2023-01-24] MEDS: PANTOPRAZOLE SODIUM 40 MG TABLET.DR PO SCH (06:28)
[2023-01-24 07:56] VITALS: BP 123/69; TEMP 98.4; O2SAT 98
[2023-01-24] MEDS: MORPHINE SULFATE SR 15 MG TABLET.SA PO SCH ×2 (09:24→20:53)
[2023-01-24] MEDS: SENNOSIDES/DOCUSATE SODIUM TABLET PO SCH (09:24)
[2023-01-24] MEDS: PSYLLIUM SEED PACKET PO SCH (09:24)
[2023-01-24] MEDS: GLUCERNA SHAKE 237 ML CAN PO SCH ×2 (09:25→18:40)
[2023-01-24] MEDS: ENOXAPARIN SODIUM 40 MG/0.4 ML DISP.SYRIN SQ SCH (09:26)
[2023-01-24] MEDS ORDERED: MAGNESIUM OXIDE 400 MG TABLET PO ONE (12:00)
[2023-01-24] MEDS: OXYCODONE HCL 5 MG TABLET PO PRN (13:47)
[2023-01-24 16:05] VITALS: BP 103/61; TEMP 98.2; O2SAT 97
[2023-01-24 20:00] VITALS: BP 104/57; TEMP 98.3; O2SAT 95
[2023-01-24] MEDS: ATORVASTATIN 10 MG TABLET PO SCH (20:53)
[2023-01-24 22:19] LABS: *BILIRUBIN,URIN NEGATIVE (NEGATIVE); *BLOOD, URINE NEGATIVE (NEGATIVE); *CLARITY,URINE CLEAR (CLEAR); *COLOR,URINE YELLOW (YELLOW); *KETONES,URINE NEGATIVE (NEGATIVE); *PROTEIN,URINE NEGATIVE (NEGATIVE); LEUKOCYTE ESTERASE ,URINE NEGATIVE (NEGATIVE); NITRITE, URINE NEGATIVE (NEGATIVE); UGLUCOSE NEGATIVE (NEGATIVE)
[2023-01-25 04:00] VITALS: BP 115/74; TEMP 98.3; O2SAT 96
[2023-01-25] MEDS: PANTOPRAZOLE SODIUM 40 MG TABLET.DR PO SCH (06:45)
[2023-01-25 08:00] VITALS: BP 120/62; TEMP 97.8; O2SAT 97
[2023-01-25] MEDS: GLUCERNA SHAKE 237 ML CAN PO SCH ×2 (08:02→18:02)
[2023-01-25] MEDS: ENOXAPARIN SODIUM 40 MG/0.4 ML DISP.SYRIN SQ SCH (08:57)
[2023-01-25] MEDS: SENNOSIDES/DOCUSATE SODIUM TABLET PO SCH (08:58)
[2023-01-25] MEDS: PSYLLIUM SEED PACKET PO SCH (09:00)
[2023-01-25] MEDS: MORPHINE SULFATE SR 15 MG TABLET.SA PO SCH ×2 (09:03→20:10)
[2023-01-25] MEDS: OXYCODONE HCL 5 MG TABLET PO PRN (14:39)
[2023-01-25 16:10] VITALS: BP 116/62; TEMP 97.7; O2SAT 98
[2023-01-25 20:10] VITALS: BP 121/67; TEMP 97.9; O2SAT 98
[2023-01-25] MEDS: ATORVASTATIN 10 MG TABLET PO SCH (20:10)
[2023-01-26 06:23] VITALS: BP 106/69; TEMP 98.2; O2SAT 97
[2023-01-26] MEDS: PANTOPRAZOLE SODIUM 40 MG TABLET.DR PO SCH (06:30)
[2023-01-26 07:56] VITALS: BP 115/69; TEMP 97.6; O2SAT 97
[2023-01-26] MEDS: SENNOSIDES/DOCUSATE SODIUM TABLET PO SCH (08:10)
[2023-01-26] MEDS: GLUCERNA SHAKE 237 ML CAN PO SCH (08:11)
[2023-01-26] MEDS: PSYLLIUM SEED PACKET PO SCH (08:11)
[2023-01-26] MEDS: ENOXAPARIN SODIUM 40 MG/0.4 ML DISP.SYRIN SQ SCH (08:12)
[2023-01-26] MEDS: MORPHINE SULFATE SR 15 MG TABLET.SA PO SCH (08:15)
== END 2023-01-26 13:10 | disposition home health service (06) | DRG 560 ==
PROVIDERS: ADMIT Physical Medicine & Rehabilitation Pain Medicine; ATTEND Nurse Practitioner Acute Care
DX: M80.852D Other osteoporosis with current pathological fracture, left femur, subsequent encounter for fracture with routine healing (principal); D62 Acute posthemorrhagic anemia; R64 Cachexia; E46 Unspecified protein-calorie malnutrition; E87.1 Hypo-osmolality and hyponatremia; Z68.41 Body mass index [BMI] 40.0-44.9, adult; E78.5 Hyperlipidemia, unspecified; G89.4 Chronic pain syndrome; I10 Essential (primary) hypertension; K59.00 Constipation, unspecified; Z98.1 Arthrodesis status; Z91.81 History of falling; R73.9 Hyperglycemia, unspecified; E83.42 Hypomagnesemia; R62.7 Adult failure to thrive; E66.9 Obesity, unspecified; Z87.440 Personal history of urinary (tract) infections; R79.89 Other specified abnormal findings of blood chemistry
CPT/HCPCS: 36415; 71045; 73502; 83735; 84100; 84300; 84443; 84550; 85025; 97535-GO-CO; A4663; A6213; J1650